=== PATIENT | female | born 1950 | race Caucasian/White ===

== ENCOUNTER 2023-03-07 16:07 | Inpatient (IN) | payer OTHER ==
[~2023-03-07] VITALS: Ht 162.6 cm; Wt 74.8 kg
[2023-03-07 16:37] VITALS: BP_SYST 137
[2023-03-07 17:00] LABS: BASOPHILS # (AUTO) 0.1 K/uL (0.0-0.2); BASOPHILS % (AUTO) 1.1 % (0.0-2.0); EOSINOPHILS # (AUTO) 0.2 K/uL (0.0-0.4); EOSINOPHILS % (AUTO) 1.6 % (0.0-4.0); HEMATOCRIT 40.6 % (36-48); HEMOGLOBIN 13.9 g/dL (12.0-16.0); LYMPHOCYTES # (AUTO) 2.3 K/uL (1.0-5.5); LYMPHOCYTES % (AUTO) 25.1 % (20.5-51.5); MEAN CORPUSCULAR HEMOGLOBIN 28 pg (27-31); MEAN CORPUSCULAR HGB CONC 34 % (32-36); MEAN CORPUSCULAR VOLUME 82 fL (79.0-98.0); MONOCYTES # (AUTO) 0.6 K/uL (0.0-1.0); MONOCYTES % (AUTO) 6.1 % (1.7-9.3); NEUTROPHILS # (AUTO) 6.1 K/uL (1.8-7.7); NEUTROPHILS % (AUTO) 66.1 % (40.0-70.0); PLATELET COUNT (AUTO) 222 K/uL (130-430); RED BLOOD CELL COUNT(AUTO) 4.96 MIL/uL (4.2-6.2); RED CELL DISTRIBUTION WIDTH 13.8 % (9.0-15.0); WHITE BLOOD COUNT (AUTO) 9.3 K/uL (4.8-10.8)
[2023-03-07 17:26] LABS: CALCIUM 8.6 mg/dL (8.4-11.0); CREATININE 1.69 mg/dL (0.55-1.30)
[2023-03-07 17:30] LABS: ALBUMIN 4.1 g/dL (3.4-4.8); TOTAL BILIRUBIN 0.4 mg/dL (0.0-1.0)
[2023-03-07 18:12] LABS: BILIRUBIN,URINE NEGATIVE (NEGATIVE); BLOOD, URINE NEGATIVE (NEGATIVE); CLARITY/URINE CLEAR (CLEAR); COLOR,URINE YELLOW (YELLOW); GLUCOSE,URINE NEGATIVE (NEGATIVE); KETONES,URINE NEGATIVE (NEGATIVE); LEUKOCYTE ESTERASE ,URINE NEGATIVE (NEGATIVE); NITRITE, URINE NEGATIVE (NEGATIVE); PROTEIN URINE NEGATIVE (NEGATIVE); UROBILINOGEN,URINE 0.2 (0.2-1.0)
[2023-03-07] MEDS ORDERED: NACL 0.9% 1,000 ML IV ONE (20:30)
[2023-03-07] MEDS ORDERED: TRAM50TA2 PO (21:04)
[2023-03-07] MEDS ORDERED: CITA40TA22 PO (21:04)
[2023-03-07] MEDS ORDERED: LEVO25TA7 PO (21:04)
[2023-03-07] MEDS ORDERED: DICY10SO PO (21:04)
[2023-03-07] MEDS ORDERED: D5/0.45 NS 1,000 ML IV ONE (21:45)
[2023-03-07] MEDS ORDERED: ONDANSETRON HCL 4 MG/2 ML VIAL ONE (23:20)
[2023-03-08 02:38] VITALS: BP_SYST 149
[2023-03-08] MEDS: PANTOPRAZOLE SODIUM 40 MG TAB PO SCH (09:00)
[2023-03-08 11:37] VITALS: BP_SYST 151
[2023-03-08] MEDS: 0.45% NACL 1,000 ML IV SCH ×2 (11:45→22:04)
[2023-03-08] MEDS: metroNIDAZOLE 250 mg/NS 50 ML IV SCH ×2 (14:00→22:04)
[2023-03-08] MEDS: LEVOFLOXACIN 250 MG/D5W 50 ML IV SCH (14:07)
[2023-03-08] MEDS ORDERED: LEVOTHYROXINE SODIUM 0.025 MG TABLET PO ONE (16:30)
[2023-03-08] MEDS ORDERED: CITALOPRAM HYDROBROMIDE 20 MG TABLET PO ONE (16:30)
[2023-03-08 16:40] VITALS: BP_SYST 149
[2023-03-08] MEDS ORDERED: BISACODYL 5 MG TABLET.DR (DULCOLAX) PO ONE (17:00)
[2023-03-08 17:27] LABS: CALCIUM 8.8 mg/dL (8.4-11.0); CREATININE 1.38 mg/dL (0.55-1.30)
[2023-03-08] MEDS ORDERED: GOLYTELY / COLYTE SOLUTION 4 LITERS PO ONE (18:00)
[2023-03-08] MEDS ORDERED: KCL 40 mEq in 100 mL (PREMIX) 100 ML IV ONE (18:00)
[2023-03-08] MEDS ORDERED: POTASSIUM CHLORIDE 40 MEQ in NS 250 ML IV ONE (18:30)
[2023-03-08 20:05] VITALS: BP_SYST 143
[2023-03-08] MEDS: traMADol HCL HCL 50 MG TABLET (ULTRAM) PO PRN (22:06)
[2023-03-08] MEDS: DICYCLOMINE HCL 10 MG/5 ML SOLUTION PO SCH (22:07)
[2023-03-09 01:09] VITALS: BP_SYST 156
[2023-03-09] MEDS: metroNIDAZOLE 250 mg/NS 50 ML IV SCH ×3 (05:47→21:35)
[2023-03-09] MEDS: 0.45% NACL 1,000 ML IV SCH ×2 (06:34→12:21)
[2023-03-09 06:48] LABS: BASOPHILS # (AUTO) 0.1 K/uL (0.0-0.2); BASOPHILS % (AUTO) 1.4 % (0.0-2.0); EOSINOPHILS # (AUTO) 0.2 K/uL (0.0-0.4); EOSINOPHILS % (AUTO) 2.2 % (0.0-4.0); HEMATOCRIT 39.2 % (36-48); HEMOGLOBIN 13.4 g/dL (12.0-16.0); LYMPHOCYTES # (AUTO) 2.8 K/uL (1.0-5.5); MEAN CORPUSCULAR HEMOGLOBIN 28 pg (27-31); MEAN CORPUSCULAR HGB CONC 34 % (32-36); MEAN CORPUSCULAR VOLUME 81 fL (79.0-98.0); MONOCYTES # (AUTO) 0.6 K/uL (0.0-1.0); MONOCYTES % (AUTO) 7.6 % (1.7-9.3); NEUTROPHILS # (AUTO) 3.9 K/uL (1.8-7.7); NEUTROPHILS % (AUTO) 51.8 % (40.0-70.0); PLATELET COUNT (AUTO) 207 K/uL (130-430); RED BLOOD CELL COUNT(AUTO) 4.86 MIL/uL (4.2-6.2); RED CELL DISTRIBUTION WIDTH 13.8 % (9.0-15.0); WHITE BLOOD COUNT (AUTO) 7.5 K/uL (4.8-10.8)
[2023-03-09 07:18] LABS: ALBUMIN 3.6 g/dL (3.4-4.8); CALCIUM 8.8 mg/dL (8.4-11.0); CREATININE 1.22 mg/dL (0.55-1.30); TOTAL BILIRUBIN 0.4 mg/dL (0.0-1.0)
[2023-03-09 07:25] LABS: INR 1.1 (0.8-1.2)
[2023-03-09 08:00] VITALS: BP_SYST 140
[2023-03-09] MEDS: fentaNYL CITRATE/PF 100 MCG/2 ML AMP ONE ×3 (08:26→08:33)
[2023-03-09] MEDS: MIDAZOLAM HCL 5 MG/5 ML VIAL ONE ×4 (08:26→08:45)
[2023-03-09] MEDS ORDERED: POTASSIUM CHLORIDE 40 MEQ in NS 250 ML IV ONE (08:30)
[2023-03-09] MEDS: BRIMONIDINE TARTRATE 0.2% 5 mL EYE DROPS OP SCH (09:00)
[2023-03-09] MEDS: DORZOLAMIDE 2% OPHTHALMIC SOLN 5ML OP SCH (09:00)
[2023-03-09] MEDS: CITALOPRAM HYDROBROMIDE 20 MG TABLET PO SCH (09:00)
[2023-03-09] MEDS ORDERED: LEVOTHYROXINE SODIUM 0.025 MG TABLET PO SCH (09:00)
[2023-03-09] MEDS: PANTOPRAZOLE SODIUM 40 MG TAB PO SCH ×2 (09:00→16:53)
[2023-03-09] MEDS: prednisoLONE 1% OPHTHALMIC SUSPN 5 ML OP SCH (09:00)
[2023-03-09] MEDS: DICYCLOMINE HCL 10 MG/5 ML SOLUTION PO SCH ×2 (09:00→21:35)
[2023-03-09 11:53] VITALS: BP_SYST 180
[2023-03-09 12:00] VITALS: BP_SYST 148
[2023-03-09] MEDS: LEVOFLOXACIN 250 MG/D5W 50 ML IV SCH (13:39)
[2023-03-09] MEDS ORDERED: POTASSIUM CHLORIDE 20 MEQ TAB.PRT.SR PO ONE (13:45)
[2023-03-09] MEDS: traMADol HCL HCL 50 MG TABLET (ULTRAM) PO PRN (14:03)
[2023-03-09 16:00] VITALS: BP_SYST 151
[2023-03-09] MEDS ORDERED: BISMUTH SUBSALICYLATE 262 MG TAB.CHEW PO PRN (16:15)
[2023-03-09 19:58] VITALS: BP_SYST 145
[2023-03-10 00:18] VITALS: BP_SYST 155
[2023-03-10] MEDS: 0.45% NACL 1,000 ML IV SCH ×2 (03:20→13:35)
[2023-03-10] MEDS: metroNIDAZOLE 250 mg/NS 50 ML IV SCH ×2 (05:36→14:00)
[2023-03-10] MEDS ORDERED: LEVOTHYROXINE SODIUM 0.025 MG TABLET PO SCH (06:00)
[2023-03-10 07:42] LABS: CALCIUM 8.5 mg/dL (8.4-11.0); CREATININE 1.35 mg/dL (0.55-1.30)
[2023-03-10] MEDS: DICYCLOMINE HCL 10 MG/5 ML SOLUTION PO SCH (09:22)
[2023-03-10] MEDS: DORZOLAMIDE 2% OPHTHALMIC SOLN 5ML OP SCH (09:22)
[2023-03-10] MEDS: CITALOPRAM HYDROBROMIDE 20 MG TABLET PO SCH (09:23)
[2023-03-10] MEDS: PANTOPRAZOLE SODIUM 40 MG TAB PO SCH (09:23)
[2023-03-10] MEDS: prednisoLONE 1% OPHTHALMIC SUSPN 5 ML OP SCH (09:24)
[2023-03-10] MEDS: BRIMONIDINE TARTRATE 0.2% 5 mL EYE DROPS OP SCH (09:24)
[2023-03-10 11:23] VITALS: BP_SYST 137
[2023-03-10] MEDS: LEVOFLOXACIN 250 MG/D5W 50 ML IV SCH (13:00)
[2023-03-10 13:38] VITALS: BP_SYST 137
[2023-03-10] MEDS ORDERED: DICYCLOMINE HCL 10 MG CAPSULE PO SCH (15:00)
[2023-03-10 15:25] VITALS: BP_SYST 118
== END 2023-03-10 16:10 | disposition home health service (06) | DRG 391 ==
LOC: SED 16:07 → SMU 21:43
PROVIDERS: ADMIT Internal Medicine; ATTEND Internal Medicine
PROC: 0DBE8ZX Excision of Large Intestine, Via Natural or Artificial Opening Endoscopic, Diagnostic (ICD-10-PCS; principal; 2023-03-09 09:30)
DX: A09 Infectious gastroenteritis and colitis, unspecified (principal); N17.0 Acute kidney failure with tubular necrosis; E87.1 Hypo-osmolality and hyponatremia; E03.9 Hypothyroidism, unspecified; Z20.822 Contact with and (suspected) exposure to COVID-19; F32.A Depression, unspecified; K59.00 Constipation, unspecified; Z90.49 Acquired absence of other specified parts of digestive tract
CPT/HCPCS: 36415; 45380; 71045; 76376; 80048; 80053; 81003; 83605; 83690; 85025; 85610-TC; 88305; 93005; 96360; 99285; J1956; J2250; J2405; J3010; J3480; J3490; J7050